=== PATIENT | male | born 1990 | race Caucasian/White ===

== ENCOUNTER 2017-09-06 00:08 | Emergency (ER) | payer OTHER ==
[2017-09-06 00:16] VITALS: RESP 18
[2017-09-06] MEDS ORDERED: RX INFO: IV CONTRAST WAS GIVEN 1 EACH MISC MISCELLANE PRN (00:23)
--- NOTE | 2017-09-06 00:26 | ED ---
General Adult HPI - General Chief complaint: Abdominal Pain Stated complaint: Flank Pain Time Seen by Provider: 09/06/17 00:10 Source: patient, RN notes reviewed Mode of arrival: ambulatory Limitations: no limitations - History of Present Illness Initial comments: This is a 27-year-old male who presents emergency Department with left upper quadrant pain. Patient states that he had a sore throat was tested for mono at an urgent care and they told him that he did have mononucleosis. Patient stated that he was coughing real hard and started to express left upper quadrant pain and at this point time he decided come to be evaluated at the emergency department. Patient states the pain started about one hour ago. Patient denies any nausea vomiting. Patient denies any shortness of breath or difficulty breathing. Patient denies any fever currently. Patient does not want anything for pain at this time. - Related Data Allergies Allergy/AdvReac Type Severity Reaction Status Date / Time Penicillins AdvReac Rash/Hives Verified 09/06/17 00:16 Review of Systems ROS Statement: Those systems with pertinent positive or pertinent negative responses have been documented in the HPI. ROS Other: All systems not noted in ROS Statement are negative. Past Medical History Past Medical History: No Reported History History of Any Multi-Drug Resistant Organisms: None Reported Additional Past Surgical History / Comment(s): undescended testicle at 15 years old. Past Psychological History: No Psychological Hx Reported Smoking Status: Current every day smoker Past Alcohol Use History: Occasional Past Drug Use History: None Reported General Exam - General Exam Comments Initial Comments: GENERAL: Patient is well-developed and well-nourished. Patient is nontoxic and well- hydrated and is in mild distress. ENT: Neck is soft and supple. No significant lymphadenopathy is noted. Oropharynx is clear. Moist mucous membranes. EYES: The sclera were anicteric and conjunctiva were pink and moist. Extraocular movements were intact and pupils were equal round and reactive to light. Eyelids were unremarkable. PULMONARY: Unlabored respirations. Good breath sounds bilaterally. No audible rales rhonchi or wheezing was noted. CARDIOVASCULAR: There is a regular rate and rhythm without any murmurs gallops or rubs. ABDOMEN: Patient has left upper quadrant tenderness to palpation SKIN: Skin is clear with no lesions or rashes and otherwise unremarkable. NEUROLOGIC: Patient is alert and oriented x3. Cranial nerves II through XII are grossly intact. Motor and sensory are also intact. Normal speech, volume and content. Symmetrical smile. MUSCULOSKELETAL: Normal extremities with adequate strength and full range of motion. LYMPHATICS: No significant lymphadenopathy is noted PSYCHIATRIC: Normal psychiatric evaluation. Normal interpersonal interactions appears functionally intact in deals appropriately with others. No signs of depression. Limitations: no limitations Course Vital Signs 09/06/17 09/06/17 00:12 01:09 Temperature 99.2 F 99.5 F Pulse Rate 92 84 Respiratory 18 18 Rate Blood Pressure 129/68 118/60 O2 Sat by Pulse 99 97 Oximetry Medical Decision Making - Medical Decision Making CT of the abdomen and pelvis shows a distended stomach no splenic abnormality noted - Lab Data Result diagrams: 09/06/17 00:24 Lab Results 09/06/17 Range/Units 00:24 WBC 9.3 (3.8-10.6) k/uL RBC 4.92 (4.30-5.90) m/uL Hgb 16.0 (13.0-17.5) gm/dL Hct 45.2 (39.0-53.0) % MCV 91.8 (80.0-100.0) fL MCH 32.6 (25.0-35.0) pg MCHC 35.5 (31.0-37.0) g/dL RDW 12.1 (11.5-15.5) % Plt Count 199 (150-450) k/uL Disposition Clinical Impression: Mononucleosis, Gastric distention Disposition: HOME SELF-CARE Condition: Good Instructions: Mononucleosis (ED) Referrals: Yoanna Duggan DO [Primary Care Provider] - 1-2 days Time of Disposition: 01:23
[2017-09-06] MEDS ORDERED: FUROSEMIDE 10 MG/ML 4 ML VIAL IV STA (00:39)
--- NOTE | 2017-09-06 00:55 | CT ---
EXAMINATION TYPE: CT abdomen pelvis w con DATE OF EXAM: 09/06/2017 COMPARISON: 08/28/2005 HISTORY: left flank pain, LUQ CT DLP: 397.10 mGycm Automated exposure control for dose reduction was used. TECHNIQUE: Helical acquisition of images was performed from the lung bases through the pelvis. CONTRAST: Performed without Oral Contrast and with IV Contrast, patient injected with 100 mL of Omnipaque 300. FINDINGS: Lung bases are clear. There is no pleural effusion. Heart size is normal. Liver spleen pancreas gallbladder appear normal. Bile ducts are not dilated. Stomach is large. There is no adrenal mass. Kidneys show satisfactory contrast opacification. There is no hydronephrosi s. There is no retroperitoneal adenopathy. There is no ascites. I see no intestinal wall thickening. There are no dilated loops. Bladder distends smoothly. There is no ascites. There is no sign of free air. The bony structures appear normal. Appendix is not definitely seen. There is no sign of appendic itis. IMPRESSION: THE STOMACH IS QUITE LARGE. THIS COULD RELATE TO A RECENT MEAL. THE POSSIBILITY OF GASTRIC OUTLET OBS TRUCTION CANNOT BE EXCLUDED. OTHERWISE NEGATIVE EXAM.
[2017-09-06 01:09] VITALS: BP 118/60; PULSE 84; TEMP 99.5
[2017-09-06 01:15] LABS: Albumin 4.3 g/dL (3.5-5.0); Anion Gap 9 mmol/L; Basophils % (A) 0 %; Calcium 9.4 mg/dL (8.4-10.2); Carbon Dioxide 28 mmol/L (22-30); Chloride 107 mmol/L (98-107); Eosinophils # (A) 0.1 k/uL (0-0.7); Eosinophils % (A) 2 %; Glucose 96 mg/dL (74-99); HCT 45.2 % (39.0-53.0); Lymphocytes % (A) 54 %; MCH 32.6 pg (25.0-35.0); MCHC 35.5 g/dL (31.0-37.0); MCV 91.8 fL (80.0-100.0); Mean Platelet Volume 6.8; Monocytes # (A) 0.4 k/uL (0-1.0); Monocytes % (A) 4 %; Neutrophils # (A) 3.6 k/uL (1.3-7.7); Neutrophils % (A) 39 %; Platelet Count 199 k/uL (150-450); RBC 4.92 m/uL (4.30-5.90); RDW 12.1 % (11.5-15.5); Sodium 144 mmol/L (137-145); Total Bilirubin 0.4 mg/dL (0.2-1.3); Total Protein 7.2 g/dL (6.3-8.2); WBC 9.3 k/uL (3.8-10.6)
--- NOTE | 2017-09-06 01:16 | XR ---
EXAMINATION TYPE: XR chest 2V DATE OF EXAM: 09/06/2017 COMPARISON: 04/18/2012 HISTORY: Short of breath TECHNIQUE: Frontal and lateral views of the chest are obtained. FINDINGS: Heart and mediastinum are normal. Lungs are clear. Diaphragm is normal. Bony thorax is int act. IMPRESSION: Normal chest. No change.
[2017-09-06 01:32] LABS: ALT 28 U/L (21-72); AST 36 U/L (17-59); Alkaline Phosphatase 53 U/L (38-126); Blood Urea Nitrogen 19 mg/dL (9-20); Potassium 4.2 mmol/L (3.5-5.1)
== END 2017-09-06 01:40 | disposition home or self-care (01) ==
LOC: EC 00:08
DX: B27.90 Infectious mononucleosis, unspecified without complication (principal); R14.0 Abdominal distension (gaseous); R10.12 Left upper quadrant pain; F17.200 Nicotine dependence, unspecified, uncomplicated; Z88.0 Allergy status to penicillin
CPT/HCPCS: 36415; 80053; 85025; 71046; 74177; 99284; Q9967

== ENCOUNTER → 2017-09-30 | Outpatient (CLI) | payer OTHER ==
--- NOTE | 2017-10-01 08:57 | XR ---
EXAMINATION TYPE: XR ribs RT w pa chest xray DATE OF EXAM: 09/30/2017 COMPARISON: 09/06/2017 HISTORY: Right anterior lower rib pain after fall one week ago TECHNIQUE: Single view chest radiograph, frontal right rib radiograph, and oblique radiographs were p erformed. FINDINGS: There is no focal consolidation, pleural effusion or pneumothorax. Cardiomediastinal silhou ette is within normal limits. There is a nondisplaced rib fracture of the lateral margin of rib 6 on the right. Remainder of the osseous structures are intact.. IMPRESSION: Nondisplaced right lateral rib 6 fracture. Otherwise no acute cardiopulmonary pathology.
== END | disposition home or self-care (01) ==
LOC: RADXRYALE 16:39
PROVIDERS: ATTEND Family Medicine
DX: S22.31XA Fracture of one rib, right side, initial encounter for closed fracture (principal)

== ENCOUNTER 2018-06-20 19:08 | Emergency (ER) | payer OTHER ==
[2018-06-20 19:40] VITALS: RESP 18
--- NOTE | 2018-06-20 20:17 | XR ---
EXAMINATION TYPE: XR shoulder complete LT DATE OF EXAM: 06/20/2018 COMPARISON: NONE HISTORY: Shoulder pain TECHNIQUE: 3 views FINDINGS: I see no fracture nor dislocation. There are no pathologic calcifications at the greater tu berosity. Joint spaces are fairly normal. IMPRESSION: Negative left shoulder exam.
--- NOTE | 2018-06-20 20:44 | ED ---
Upper Extremity HPI - General Chief Complaint: Extremity Injury, Upper Stated Complaint: left shoulder injury Time Seen by Provider: 06/20/18 20:22 Source: patient Mode of arrival: ambulatory Limitations: no limitations - History of Present Illness Initial Comments: 28yo female no past medical history presenting today for chief complaint of left shoulder pain x 4 days. Patient states that August night he was climbing a ladder about 4-5 feet from the ground when the ladder slipped falling onto his left arm. Patient denies head injury, loss of consciousness, injury to the chest or injury to any other extremity. Patient immediately noted left shoulder pain. Patient is tender to palpation over the humeral head. Patient was concerned about dislocation or fracture following decreased range of motion for the 3 days following injury. Patient presented today for evaluation. Patient denies numbness, tingling, loss sensation, color changes, erythema of the left upper extremity, neck pain, back pain, shortness of breath or chest pain. Patient is able to fully range at the elbow, wrist and hand. Remainder of ROS (-), patient denies any recent fever, chills, shortness of breath, chest pain, back pain, abdominal pain, nausea or vomiting, numbness or tingling, dysuria or hematuria, constipation or diarrhea, headaches or visual changes, or any other complaints. - Related Data Allergies Allergy/AdvReac Type Severity Reaction Status Date / Time Penicillins AdvReac Rash/Hives Verified 06/20/18 19:39 Review of Systems ROS Statement: Those systems with pertinent positive or pertinent negative responses have been documented in the HPI. ROS Other: All systems not noted in ROS Statement are negative. Constitutional: Denies: fever, chills, night sweats ENT: Denies: ear pain, throat pain Respiratory: Denies: cough, dyspnea, wheezes, hemoptysis, stridor Cardiovascular: Denies: chest pain, palpitations Endocrine: Denies: fatigue Gastrointestinal: Denies: abdominal pain, nausea, vomiting, diarrhea, constipation, hematemesis, melena Musculoskeletal: Reports: arthralgia (left shoulder pain). Denies: back pain, joint swelling Skin: Denies: rash, lesions Neurological: Denies: headache, weakness, numbness, paresthesias, confusion Past Medical History Past Medical History: No Reported History History of Any Multi-Drug Resistant Organisms: None Reported Additional Past Surgical History / Comment(s): undescended testicle at 15 years old. Past Psychological History: No Psychological Hx Reported Smoking Status: Current every day smoker Past Alcohol Use History: Occasional Past Drug Use History: None Reported General Exam - General Exam Comments Initial Comments: General: The patient is awake and alert, in no distress, and does not appear acutely ill. Eye: Pupils are equal, round and reactive to light, extra-ocular movements are intact. No nystagmus. There is normal conjunctiva bilaterally. No signs of icterus. Ears, nose, mouth and throat: There are moist mucous membranes and no oral lesions. Neck: The neck is supple, there is no tenderness or JVD. Cardiovascular: There is a regular rate and rhythm. No murmur, rub or gallop is appreciated. Respiratory: Lungs are clear to auscultation, respirations are non-labored, breath sounds are equal. No wheezes, stridor, rales, or rhonchi. Gastrointestinal: Soft, non-distended, non-tender abdomen without masses or organomegaly noted. There is no rebound or guarding present. Musculoskeletal: Limited ROM of the left shoulder with overhead movement. Pt is unable to do cross arm, near testing. Pt complains of tenderness near humeal head. Strength 5/5 at elbow, wrist and hands as well as left UE. Sensation intact of the UE equally b/l. Radial and ulnar pulses equal bilaterally 2+. Department soft and compressible, capillary refill less than 2 seconds. No noted palpable defect or step-off. No pain or patient the scapula. No AC joint tenderness. No ecchymosis noted. Patient is able to make the okay, fingers crossed, thumbs-up and finger opposition, he is able to extend at the wrist no evidence of wrist drop. Ulnar median and radial nerve appear intact. No loss of sensation in the badge region, no badge paresthesias. Neurological: A&O x 3. CN II-XII intact, There are no obvious motor or sensory deficits. Coordination appears grossly intact. Speech is normal. Skin: Skin is warm and dry and no rashes or lesions are noted. Psychiatric: Cooperative, appropriate mood & affect, normal judgment. Limitations: no limitations Course Vital Signs 06/20/18 06/20/18 19:36 21:02 Temperature 99.1 F 98 F Pulse Rate 88 87 Respiratory 18 18 Rate Blood Pressure 117/78 123/77 O2 Sat by Pulse 98 98 Oximetry Medical Decision Making - Medical Decision Making PE as noted above, patient is neurovascularly intact. There is limited range of motion with overhead movement. Compartments soft and compressible. X-ray of the left shoulder revealed no dislocation or acute fracture. Patient had sling with him from home. He was instructed to follow-up with orthopedic surgery in 1-2 days for further evaluation. In addition patient was told to apply ice and heat to the area and take ibuprofen and Tylenol. Pt is agreeable with plan. Case discussed with Dr. Shin who agreed with impression and plan. He reviewed all radiographic imaging. At this time feel patient is stable for discharge with follow up as indicated. Patient is agreeable with plan was discharged in stable condition. Disposition Clinical Impression: Left shoulder pain, Injury of left shoulder Disposition: HOME SELF-CARE Condition: Good Instructions: Shoulder Pain (ED) Additional Instructions: Please use over the counter pain medication as discussed. Please follow-up with family doctor in the next 2 days, please follow-up with orthopedic surgery in next 1-2 days. Please return to emergency room if the symptoms increase or worsen or for any other concerns. Is patient prescribed a controlled substance at d/c from ED?: No Referrals: Yoanna Duggan DO [Primary Care Provider] - 1-2 days Diego Hu MD [STAFF PHYSICIAN] - 1-2 days Time of Disposition: 20:43
[2018-06-20 21:03] VITALS: BP 123/77; PULSE 87; TEMP 98
== END 2018-06-20 21:03 | disposition home or self-care (01) ==
LOC: EC 19:08
DX: S49.92XA Unspecified injury of left shoulder and upper arm, initial encounter (principal); F17.200 Nicotine dependence, unspecified, uncomplicated; Z88.0 Allergy status to penicillin; W11.XXXA Fall on and from ladder, initial encounter; Y93.39 Activity, other involving climbing, rappelling and jumping off; Y92.009 Unspecified place in unspecified non-institutional (private) residence as the place of occurrence of the external cause
CPT/HCPCS: 99283